=== PATIENT | male | born 1950 | race Two or more races ===

== ENCOUNTER 2020-12-16 09:47 | Emergency (ER) | payer OTHER ==
[~2020-12-16] VITALS: Ht 177.8 cm; Wt 112.5 kg
[2020-12-16 09:49] VITALS: BP 159/72
== END 2020-12-16 11:38 | disposition home or self-care (01) ==
LOC: ER 09:47
DX: S52.121A Displaced fracture of head of right radius, initial encounter for closed fracture (principal); I10 Essential (primary) hypertension; W01.0XXA Fall on same level from slipping, tripping and stumbling without subsequent striking against object, initial encounter; Y93.89 Activity, other specified; Y92.89 Other specified places as the place of occurrence of the external cause; Y99.8 Other external cause status
CPT/HCPCS: 29105; 73080

== ENCOUNTER 2020-12-25 07:23 | Day surgery (SDC) | payer OTHER ==
[~2020-12-25] VITALS: Ht 177.8 cm; Wt 113.4 kg
[~2020-12-25 07:23] MED LIST: AMLO-496 PO; ASPI1TAB20 PO; ATEN100T PO; ATO40T PO; GLIP10TA9 PO; IBUP800T26 PO; LISI30TA4 PO; METF-370 PO; TRAM50TA2 PO; [UNRECOGNIZED DRUG - CODE] PO
[2020-12-25] MEDS ORDERED: ceFAZolin 1GM/50ML 100 ML IV ONE (07:56)
[2020-12-25] MEDS ORDERED: ROPIVACAINE 0.5% (5MG/ML) 20ML AMPULE IJ ONE (08:51)
[2020-12-25] MEDS ORDERED: MIDAZOLAM HCL 2MG/2ML 2ml VIAL (1mg/ml) ONE (08:56)
[2020-12-25] MEDS ORDERED: fentaNYL CITRATE 5 ML ONE (08:56)
[2020-12-25] MEDS ORDERED: ONDANSETRON HCL 4 MG/2 ML VIAL ONE (09:07)
[2020-12-25] MEDS ORDERED: LIDOCAINE 2% (LOCAL ANESTH.) PF 5ml SDV ONE (09:07)
[2020-12-25] MEDS ORDERED: PROPOFOL 10 MG/ML 20 ML IV ONE (09:08)
[2020-12-25] MEDS ORDERED: ONDANSETRON HCL 4 MG/2 ML VIAL IV PRN (10:00)
[2020-12-25] MEDS: HYDROmorphone HCL 2 MG/ML VL IV PRN ×4 (11:46→12:16)
[2020-12-25 12:30] VITALS: BP 154/85
== END 2020-12-25 13:00 | disposition home or self-care (01) ==
LOC: SUR 07:23
PROVIDERS: ATTEND Orthopaedic Surgery
DX: S52.121A Displaced fracture of head of right radius, initial encounter for closed fracture (principal); I10 Essential (primary) hypertension; E11.9 Type 2 diabetes mellitus without complications; E78.5 Hyperlipidemia, unspecified; M10.9 Gout, unspecified; Z79.84 Long term (current) use of oral hypoglycemic drugs; Z96.652 Presence of left artificial knee joint; Z83.3 Family history of diabetes mellitus; Z82.5 Family history of asthma and other chronic lower respiratory diseases; Z82.49 Family history of ischemic heart disease and other diseases of the circulatory system; Z20.822 Contact with and (suspected) exposure to COVID-19; X58.XXXA Exposure to other specified factors, initial encounter; Y92.89 Other specified places as the place of occurrence of the external cause; Y93.89 Activity, other specified; Y99.8 Other external cause status
CPT/HCPCS: 24665; 73070; 76001; 82962; J0690; J1170; J2001; J2250; J2405; J2704; J2795; J3010; U0003

== ENCOUNTER 2023-09-02 11:04 | Inpatient (IN) | payer OTHER ==
[~2023-09-02] VITALS: Ht 177.8 cm; Wt 115.0 kg
[~2023-09-02 11:04] MED LIST changes: -AMLO-496 PO; +AMLO1TAB23 PO; -ATO40T PO; +ATOR-507 PO; +IBUP-1455 PO; -IBUP800T26 PO; -LISI30TA4 PO; +LISI30TA8 PO
[2023-09-02] MEDS: SODIUM CHLORIDE 0.9% 1,000 ML IV ONE (12:15)
[2023-09-02 12:29] LABS: Basophils # (auto) 0.1 10 ^3/uL (0-0.2); Basophils % (auto) 0.4 % (0.0-2.0); Eosinophils # (auto) 0.2 10 ^3/uL (0-0.8); Hematocrit 41.8 % (41.0-53.0); Hemoglobin 14.3 g/dL (13.5-17.5); Lymphocytes # (auto) 2.3 10 ^3/uL (0.4-5.4); Lymphocytes % (auto) 19.2 % (10.0-50.0); Mean Corpuscular Hemoglobin 33.1 pg (28.0-32.0); Mean Corpuscular Hgb Conc. 34.1 g/dL (32.0-36.0); Mean Corpuscular Volume 96.9 fL (80.0-100.0); Monocytes # (auto) 1.3 10 ^3/uL (0-1.3); Monocytes % (auto) 10.4 % (0.0-12.0); Neutrophils # (auto) 8.3 10 ^3/uL (1.6-8.6); Red Blood Cells 4.31 10^6/uL (4.5-5.90); Red Cell Distribution Width 13.5 % (11.8-14.3); White Blood Cell 12.2 10^3/uL (4.4-10.8)
[2023-09-02 12:44] LABS: INR 1.08 (0.9-1.15); Prothrombin Time 11.4 sec (9.3-11.8)
[2023-09-02 12:45] LABS: Alanine Aminotransferase 17 U/L (7-40); Albumin 3.9 g/dL (3.2-4.8); Alkaline Phosphatase 47 U/L (46-116); Anion Gap 8 (5-15); Aspartate Aminotransferase 14 U/L (13-40); BUN/Creatinine Ratio 14.2 (10.0-20.0); Blood Urea Nitrogen 16 mg/dL (9-23); Calcium 9.3 mg/dL (8.5-10.1); Carbon Dioxide 25 mmol/L (20-30); Chloride 106 mmol/L (98-107); Glucose 108 mg/dL (74-106); Magnesium 1.5 mg/dL (1.6-2.6); Potassium 3.5 mmol/L (3.5-5.1); Sodium 139 mmol/L (136-145)
[2023-09-02 12:46] LABS: Bilirubin, Total 0.9 mg/dL (0.2-1.0); Total Protein 6.4 g/dL (5.7-8.2)
[2023-09-02 14:09] VITALS: PULSE 74; RESP 18; O2SAT 95
[2023-09-02] MEDS ORDERED: DEXTROSE (50%) 50ML SYRG IV PRN (16:45)
[2023-09-02] MEDS ORDERED: MORPHINE SULFATE INJ 2 MG/ml SYRG IV PRN ×2 (16:45)
[2023-09-02] MEDS ORDERED: ONDANSETRON HCL 4 MG/2 ML VIAL IV PRN (16:45)
[2023-09-02] MEDS: IBUPROFEN 800 MG TAB PO SCH (16:45)
[2023-09-02] MEDS ORDERED: NITROGLYCERIN 0.4 MG SL TAB SL PRN (16:45)
[2023-09-02] MEDS: InsuLIN REG 1unit/0.01ml Soln (100units/ml) SC SCH (17:00)
[2023-09-02] MEDS: ACCU-CHEK COMFORT CURVE STRIP VI SCH (17:00)
[2023-09-02] MEDS: HYDROmorphone HCL 2 MG/ML VL/or syr IV ONE (18:00)
[2023-09-02] MEDS: glipiZIDE 5 MG TAB PO SCH (18:00)
[2023-09-02 19:45] VITALS: PULSE 70; RESP 17; O2SAT 94
[2023-09-02] MEDS: FAMOTIDINE 20 MG TAB PO SCH (22:36)
[2023-09-03] VITALS (7 sets, daily range): BP systolic 109–159; BP diastolic 57–85; PULSE 70–98; RESP 16–18; TEMP 97.4–98.2; O2SAT 91–95
[2023-09-03] MEDS: ENOXAPARIN SOD 40 MG/0.4 ML SYRINGE SC SCH (08:50)
[2023-09-03] MEDS: ASPirin-EC 81 mg tab PO SCH (08:53)
[2023-09-03] MEDS: amLODIPine BESYLATE 5 MG TAB PO SCH (08:54)
[2023-09-03] MEDS: ATENOLOL 25 MG TAB PO SCH (08:55)
[2023-09-03] MEDS ORDERED: LISI20TA56 PO (09:08)
[2023-09-03] MEDS ORDERED: SERT-206 PO (09:09)
[2023-09-03] MEDS ORDERED: SEMA4INJ SC (09:13)
[2023-09-03] MEDS ORDERED: ALBUAER3 IN (09:13)
[2023-09-03] MEDS ORDERED: MECL-90 PO (09:14)
[2023-09-03] MEDS ORDERED: SILD100T PO (09:15)
[2023-09-03] MEDS: traMADol HCL 50 MG TAB PO PRN (11:30)
[2023-09-03] MEDS: MECLIZINE HCL 25 MG TAB PO PRN (17:07)
[2023-09-04 00:48] VITALS: BP 139/83; PULSE 73; RESP 16; TEMP 98.3; O2SAT 96
[2023-09-04 05:00] VITALS: BP 136/80; PULSE 93; RESP 16; TEMP 98.2; O2SAT 96
[2023-09-04 08:00] VITALS: BP 144/75; PULSE 68; PULSE 70; RESP 16; TEMP 97.9; O2SAT 94
[2023-09-04] MEDS: SERTRALINE HCL 50 MG TAB PO SCH (09:13)
[2023-09-04] MEDS: LISINOPRIL 20 MG TAB PO SCH (09:14)
[2023-09-04 09:45] VITALS: BP_SYST 120; BP_SYST 151; BP_SYST 158; BP_DIAS 77; BP_DIAS 85; BP_DIAS 88
[2023-09-04] MEDS ORDERED: FAMO-161 PO (11:33)
[2023-09-04] MEDS ORDERED: IBUP-1455 PO (11:33)
[2023-09-04 12:27] VITALS: BP 144/75; PULSE 68; TEMP 36.6
== END 2023-09-04 13:25 | disposition home health service (06) | DRG 536 ==
LOC: ER 11:04 → EDBD 11:04 → TELE 16:41 → TELE-WESTW 23:45
PROVIDERS: ADMIT Hospitalist; ATTEND Internal Medicine
DX: S72.115A Nondisplaced fracture of greater trochanter of left femur, initial encounter for closed fracture (principal); E11.9 Type 2 diabetes mellitus without complications; I10 Essential (primary) hypertension; K40.90 Unilateral inguinal hernia, without obstruction or gangrene, not specified as recurrent; E78.5 Hyperlipidemia, unspecified; Z83.3 Family history of diabetes mellitus; Z79.4 Long term (current) use of insulin; Z79.899 Other long term (current) drug therapy; Z82.5 Family history of asthma and other chronic lower respiratory diseases; W01.0XXA Fall on same level from slipping, tripping and stumbling without subsequent striking against object, initial encounter; Y93.89 Activity, other specified; Y92.098 Other place in other non-institutional residence as the place of occurrence of the external cause; Y99.8 Other external cause status
CPT/HCPCS: 36415; 70551; 71045; 73502; 73700; 80053; 82962; 83735; 85025; 85610; 85730; 93005; 96361; 96374; 97110; 97116; 97163; 97530; G0378; J1815

== ENCOUNTER 2024-02-03 06:51 | Day surgery (SDC) | payer OTHER ==
[~2024-02-03] VITALS: Ht 177.8 cm; Wt 104.8 kg
[2024-02-03] VITALS (9 sets, daily range): BP systolic 130–161; BP diastolic 81–89; PULSE 72–81; RESP 10–17; TEMP 97.6; O2SAT 92–98
[~2024-02-03 06:51] MED LIST changes: +ALBUAER3 IN; -ASPI1TAB20 PO; -GLIP10TA9 PO; -IBUP-1455 PO; +INSU75IN2 SC; +LISI20TA56 PO; -LISI30TA8 PO; +MECL-90 PO; +SEMA4INJ SC; +SERT-206 PO; +SILD100T PO; -TRAM50TA2 PO; -[UNRECOGNIZED DRUG - CODE] PO
[2024-02-03] MEDS ORDERED: IODIXANOL 320MG/ML 100ML BTL IV ONE ×3 (11:13→12:29)
[2024-02-03] MEDS ORDERED: HEPARIN IN NS 1000Units/500mL 1,500 ML ONE (11:14)
[2024-02-03] MEDS ORDERED: ANGIOMAX 250 MG VIAL IV ONE (11:19)
[2024-02-03] MEDS ORDERED: fentaNYL CITRATE 100 MCG/2 ML VL ONE (11:20)
[2024-02-03] MEDS ORDERED: SODIUM CHL 0.9% 0 ML ONE (11:20)
[2024-02-03] MEDS ORDERED: MIDAZOLAM HCL 2MG/2ML 2ml VIAL (1mg/ml) ONE (11:20)
[2024-02-03] MEDS ORDERED: LIDOCAINE 2%HCL (LOCAL ANESTH.) INJ 20ML MDV ONE (11:20)
[2024-02-03] MEDS ORDERED: hydrALAZINE HCL 20 MG/ML VL ONE (11:38)
--- NOTE | 2024-02-03 13:32 | DVHOP2 ---
Operative Report - 2 Report Details Date: 02/03/24 Preop Diagnosis: Carotid stenosis. Aortic stenosis. Postop Diagnosis: s/p LR s/p Carotid angiogram Surgeon: Gautam Hilliard MD Anesthesiologist: No anesthesia given Anesthesia: Local Consent: The patient was informed of the risks and benefits of the procedure. These include but are not limited to complications of anesthesia, postoperative infection, incomplete relief of symptoms, recurrence of symptoms, damage to blood vessels, nerves and tendons, deep venous thrombosis, pulmonary embolism and possible need for repeat surgery in the future. Complications: No complications Estimated Blood Loss: 5 cc Findings: [id number] aortic stenosis. No significant coronary artery disease. Normal end-diastolic pressure. Normal pulmonary pressures. Normal carotids Indications for Surgery: TIAs. Shortness of breath. Name of Procedure Performed Right and left heart catheterization bilateral cine coronary angiography. Left ventriculography. Carotid angiography bilaterally. Procedure Details Procedure Details: Prior local anesthesia with 2% lidocaine to the right groin and full informed consent obtained the patient was prepped and draped in usual fashion followed by placement of a six [place] sheath into the femoral artery and a six [place] sheath into the femoral vein through which a Slater-Hector catheter was advanced into the right atrium right ventricle pulmonary artery and capillary wedge pressure positions pressures were obtained and recorded. Cardiac outputs were determined by the thermodilution technique in triplicate. Through the right femoral artery six [place] sheath was placed and a Jones catheter was used for ventriculography and measurement of pressures. Edda catheters were used to cannulate both right and left coronary ostia and adequate visualization of the coronaries performed. Hemodynamics: Right atrial pressure was 10. Right ventricular pressure was 28/10. Pulmonary artery pressure was 31/21. Capillary wedge pressure was 11. Left ventricular pressure was 163. Aortic pressure was 147. There was a 20 mm of mercury gradient across the aortic valve. Aortic valve area was calculated at 1.02 cm2. Cardiac output by the thermodilution technique in triplicate was 5.3. Coronary anatomy the RCA is large and normal. PDA and posterolateral branches are normal. The left main is large and normal. The left anterior descending coronary artery is large and normal with no stenosis since proximal mid or distal segments. Diagonals and septals are normal. The circumflex is a large vessel with two obtuse marginal branches. Normal and free of significant disease. Ventriculography : Performed in the SAAVEDRA projection shows an EF 55%. No significant regional wall motion abnormalities. We then proceeded to perform carotid angiography. We cannulated the vertebrals via the innominate on the right and left subclavian on the left. The right common carotid and internal and external carotids including the internal carotid are within normal limits. The left common carotid the internal and external carotids are also within normal limits. Mild calcification and indentation of the left internal carotid without critical disease. Impression: Moderate aortic stenosis. Normal pulmonary pressures. No significant carotid stenosis. Recommendations: Continue medical therapy. We will follow up progression of aortic stenosis over the next year. Consider TAVR when necessary. Condition Good Disposition Home Date of Service: Feb 03, 2024 Billing Provider: GAUTAM HILLIARD Sr., MD Cardiology Common Codes: 59006-CBATIYP INP/OBS CARE (High) Cardiology Procedure Codes: 66319-JVCM HEART CATH W/INTRA INJ, 49133-V/R & L HEART CATH FOR LVG, 62478-SSI & PLCMT OF FLOW DIR CATH Peripheral Procedures Codes: 04430-[id number] RAD SUP/INTERP (Associated procedure was carotid angiography with visualization common carotids internal and external carotid cerebral circulation and bilateral vertebrals.) GAUTAM HILLIARD Sr., MD Feb 03, 2024 13:32
== END 2024-02-03 15:10 | disposition home or self-care (01) ==
LOC: CATH 06:51
PROVIDERS: ATTEND Internal Medicine
DX: R06.02 Shortness of breath (principal); I65.22 Occlusion and stenosis of left carotid artery; I35.0 Nonrheumatic aortic (valve) stenosis; Z86.73 Personal history of transient ischemic attack (TIA), and cerebral infarction without residual deficits; I10 Essential (primary) hypertension; Z79.899 Other long term (current) drug therapy
CPT/HCPCS: 36222; 93460; C1769; C1894; J0360; J1644; J7030; Q9967; 99152; J2250